=== PATIENT | female | born 1985 | race Caucasian/White ===

== ENCOUNTER 2022-10-24 09:26 | Emergency (ER) | payer OTHER, SELFPAY ==
[2022-10-24 10:07] VITALS: BP 113/74; PULSE 68; RESP 16; TEMP 36.8; O2SAT 100
--- NOTE | 2022-10-24 10:28 | ED.GENADULT ---
HPI - General Adult General Chief complaint: Urogenital-Female Stated complaint: Urinary Problem Source: patient and RN notes reviewed History of Present Illness HPI narrative: 37-year-old female presents to urgent care with complaints of an odorous vaginal discharge x1 week. Patient states it is a fishy smell. Patient denies any dysuria, urinary frequency, and urinary urgency, pelvic pain, flank pain, back pain. Denies any fevers or chills. Denies any recent use of antibiotics. Denies any new sexual partners. Some parts of this dictation were generated by voice recognition software and may contain typographical and/or grammatical inaccuracies. Related Data Home Medications Medication Instructions Recorded Confirmed carbamazepine 200 mg tablet mg 10/24/22 lacosamide 100 mg tablet mg 10/24/22 trazodone 50 mg tablet mg 10/24/22 Allergies Allergy/AdvReac Type Severity Reaction Status Date / Time No Known Allergies Allergy Unverified 11/29/14 00:04 Review of Systems Review of Systems: CONSTITUTIONAL: Denies fever, chills, or sweats. EYES: Denies visual changes, redness, or discharge. ENT: Denies otalgia and sore throat CARDIOVASCULAR: Denies chest pain, palpitations, or edema. RESPIRATORY: Denies cough or dyspnea. GASTROINTESTINAL: Denies abdominal pain, nausea, vomiting, or diarrhea. GENITOURINARY: Vaginal discharge SKIN: Denies rash or itching. MUSCULOSKELETAL: Denies back pain, joint pain, or myalgia. NEUROLOGIC: Denies headache, numbness, or weakness. PMFSH Comments At the time of my signature, I reviewed and agree with the nursing past medical, surgical, social, and family history. There is no relevant family history pertinent to the patient complaint. Exam Narrative: GENERAL: This is a well-nourished, well-developed patient, in no apparent distress. HEAD: normocephalic, atraumatic. EYES: PERRL. Sclera clear/white. Vision is grossly intact. EARS: External ears normal, auditory canals clear and without drainage, TMs normal without perforation. Hearing grossly intact. NOSE: External nose normal with no obvious nasal discharge, nares without redness, no rhinorrhea. THROAT: Mucous membranes moist, posterior pharynx clear. NECK: Neck supple, non-tender without lymphadenopathy, masses or thyromegaly. CARDIOVASCULAR: Regular rate and rhythm without murmurs, gallops, or rubs. RESPIRATORY: Clear to auscultation. Breath sounds equal bilaterally. No wheezes, rales, or rhonchi. GASTROINTESTINAL: Abdomen soft, non-tender, nondistended. Bowel sounds are active. No hepato-splenomegaly, or palpable masses. No guarding. SKIN: warm, intact with no suspicious lesions or rash, good texture and turgor. NEURO: awake, alert, and oriented to person, place and time. There were no obvious focal neurologic abnormalities. 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 Go to ER or seek medical attention any new worsening symptoms. Take antibiotics as directed Differential Diagnosis Differential Diagnosis: BV, continued infection, STI Patient states she is unconcerned with any STIs including gonorrhea, chlamydia, or Trichomonas. Patient states she has been for 18 years and has had no new sexual partners. Patient denies any history of diabetes. Patient states she rather be treated for BV with no exa
== END 2022-10-24 10:41 | disposition home or self-care (01) ==
PROVIDERS: Emergency Provider Nurse Practitioner Family
DX: N76.0 Acute vaginitis (principal)
CPT/HCPCS: 99203; G0463